=== PATIENT | male | born 1980 | race Caucasian/White ===

== ENCOUNTER 2024-10-18 13:30 | Emergency (ER) | payer SELFPAY ==
[~2024-10-18] VITALS: Ht 172.7 cm; Wt 113.0 kg
[2024-10-18 13:32] VITALS: O2SAT 99
[2024-10-18] MEDS: SODIUM CHLORIDE 0.9% 500 ML IV ONE (14:08)
[2024-10-18 16:58] VITALS: BP 125/70; PULSE 106; RESP 16; TEMP 37.00296; O2SAT 96
== END 2024-10-18 17:02 | disposition home or self-care (01) ==
LOC: ER 13:30
DX: T40.601A Poisoning by unspecified narcotics, accidental (unintentional), initial encounter (principal); K74.60 Unspecified cirrhosis of liver; Z88.0 Allergy status to penicillin; X58.XXXA Exposure to other specified factors, initial encounter
CPT/HCPCS: 96360; 99291; J7040; Z7610